=== PATIENT | male | born 1965 | race Caucasian/White ===

== ENCOUNTER 2016-09-12 17:44 | Emergency (ER) | payer SELFPAY ==
[~2016-09-12] VITALS: Ht 188 cm; Wt 73.8 kg
[~2016-09-12 17:44] MED LIST: ACET-1256 PO; IBUP-103 PO
[2016-09-12 17:48] VITALS: TEMP 36.6; Ht 188 cm; Wt 73.8 kg
[2016-09-12] MEDS ORDERED: HYDROCODONE/ACETAMOPHEN 5/325MG TAB PO STA (18:08)
--- NOTE | 2016-09-12 18:38 | DIAGNOSTIC IMAGING REPORT ---
RIGHT KNEE 2 VIEWS CLINICAL HISTORY: Right knee pain. No reported history of trauma. FINDINGS: AP and crosstable lateral views of the right knee are obtained. No prior studies are available for comparison at the time of dictation. The skeletal structures are well mineralized. No fracture is seen. The joint spaces of the knee are well-maintained. There is no joint effusion. The overlying soft tissues are within normal limits. IMPRESSION: Unremarkable radiographic assessment of the right knee. Electronically signed by: Andres Altman M.D. 09/12/2016 6:37 PM Dictated Date/Time: 09/12/2016 6:37 PM
--- NOTE | 2016-09-12 18:40 | DIAGNOSTIC IMAGING REPORT ---
RIGHT ANKLE 3 VIEWS CLINICAL HISTORY: Right ankle pain. No reported history of trauma. FINDINGS: 3 views of the right ankle are obtained. No prior studies are available for comparison at the time of dictation. The skeletal structures are well mineralized. No fracture is seen. The ankle mortise is intact. No joint effusion is identified. The overlying soft tissues are within normal limits. IMPRESSION: Unremarkable radiographic assessment of the right ankle. Electronically signed by: Andres Altman M.D. 09/12/2016 6:39 PM Dictated Date/Time: 09/12/2016 6:38 PM
--- NOTE | 2016-09-12 20:40 | DIAGNOSTIC IMAGING REPORT ---
ULTRASOUND RIGHT LOWER EXTREMITY VENOUS CLINICAL HISTORY: Right leg pain. COMPARISON STUDY: No priors. TECHNIQUE: Real-time, grayscale, and color Doppler sonography of the deep veins of the right lower extremity was performed from the inguinal crease to the calf. Compression and augmentation were utilized. FINDINGS: There is no sonographic evidence of deep venous thrombosis identified in the right lower extremity. The common femoral, superficial femoral, and popliteal veins are patent and normally compressible. The greater saphenous vein and the profunda femoris vein at the junction with the common femoral vein are clear. The visualized calf veins are patent. IMPRESSION: There is no sonographic evidence of deep venous thrombosis identified in the right lower extremity. Electronically signed by: Andres Altman M.D. 09/12/2016 8:38 PM Dictated Date/Time: 09/12/2016 8:38 PM
--- NOTE | 2016-09-12 21:16 | EMERGENCY ROOM VISIT NOTE ---
ED Visit Note First contact with patient: 17:52 CHIEF COMPLAINT: Right knee and ankle pain HISTORY OF PRESENT ILLNESS: This 50-year-old male presents the ER with chief complaint of right knee pain for the past 2 months which increased over the past several days and now he also has pain in the right ankle for the last few days. The patient denies any known injury. The patient states that he was incarcerated and was just released on . He states since he was released he has had increased pain in the knee and the ankle. The patient denies any fever or any numbness and tingling. The patient denies any history of gout. The patient has been taking ibuprofen without any relief of the pain. REVIEW OF SYSTEMS: 6 system review was performed and was negative unless stated otherwise in history of present illness. PMH: The patient is healthy; head and rectal surgery SOCIAL HISTORY: Patient lives alone. The patient admits to tobacco use but denies any alcohol use. PHYSICAL EXAM: Vital Signs: Were reviewed Reviewed Nurse's notes. GEN.: 50-year -old white male appears older than stated age. Poor hygiene is noted. MENTAL STATUS: Alert, oriented, and cooperative. RIGHT KNEE: No gross bony deformity noted. No erythema or edema noted. The patient is tender to palpation over the medial joint space. Full range of motion of the knee. No ligament instability noted. RIGHT ANKLE: No gross bony deformity noted. There is some mild erythema over the medial malleolus with surrounding ecchymosis. No increased temperature to touch. This area is very tender to palpation. Full range of motion of the ankle but this is painful. RIGHT LOWER LEG: Calf is nontender. No erythema or edema noted. No palpable cords noted EMERGENCY DEPARTMENT COURSE: The patient was evaluated. The patient was given Rac[place] 5/325 mg 2 tablets by mouth for pain. X-ray of the right knee and ankle were ordered and interpreted by the radiologist and myself. DIAGNOSTICS:RIGHT KNEE 2 VIEWS CLINICAL HISTORY: Right knee pain. No reported history of trauma. FINDINGS: AP and crosstable lateral views of the right knee are obtained. No prior studies are available for comparison at the time of dictation. The skeletal structures are well mineralized. No fracture is seen. The joint spaces of the knee are well-maintained. There is no joint effusion. The overlying soft tissues are within normal limits. IMPRESSION: Unremarkable radiographic assessment of the right knee. Electronically signed by: Andres Altman M.D. RIGHT ANKLE 3 VIEWS CLINICAL HISTORY: Right ankle pain. No reported history of trauma. FINDINGS: 3 views of the right ankle are obtained. No prior studies are available for comparison at the time of dictation. The skeletal structures are well mineralized. No fracture is seen. The ankle mortise is intact. No joint effusion is identified. The overlying soft tissues are within normal limits. IMPRESSION: Unremarkable radiographic assessment of the right ankle. Electronically signed by: Andres Altman M.D. 09/12/2016 6:39 PM Dictated Date/Time: 09/12/2016 6:38 PM ULTRASOUND RIGHT LOWER EXTREMITY VENOUS CLINICAL HISTORY: Right leg pain. COMPARISON STUDY: No priors. TECHNIQUE: Real-time, grayscale, and color Doppler sonography of the deep veins of the right lower extremity was performed from the inguinal crease to the calf. Compression and augmentation were utilized. FINDINGS: There is no sonographic evidence of deep venous thrombosis identified in the right lower extremity. The common femoral, superficial femoral, and popliteal veins are patent and normally compressible. The greater saphenous vein and the profunda femoris vein at the junction with the common femoral vein are clear. The visualized calf veins are patent. IMPRESSION: There is no sonographic evidence of deep venous thrombosis identified in the right lower extremity. Electronically signed by: Andres Altman M.D. 09/12/2016 8:38 PM The patient was informed of all findings. The patient was given information on CV IM for follow-up. The patient was discharged home in stable condition. DIAGNOSIS: Right knee and right ankle pain DISCHARGE INSTRUCTIONS: Ibuprofen 600 mg every 6 hours with food for pain. Take [place] as needed for more severe pain. Do not drive while taking the [place]. Recommend follow-up with either CV IM or orthopedics for continued pain. Problem List Medical Problems: (1) hemrrhoid surgery Status: Resolved Surgical Problems: (1) History of surgery of head Status: Resolved Current/Historical Medications Scheduled PRN Ibuprofen Tab (Advil), 400-600 MG PO Q6H PRN for Headache Allergies Coded Allergies: Propoxyphene (Unverified Allergy, Mild, 09/15/12) Penicillins (Verified Allergy, Unknown, 01/16/15) Vital Signs Date Time Temp Pulse Resp B/P Pulse Ox O2 Delivery O2 Flow Rate FiO2 09/12/16 20:18 85 20 120/92 96 Room Air 09/12/16 18:39 86 16 144/98 97 Room Air 09/12/16 17:48 36.6 85 20 148/102 100 Room Air Medications Administered Medications (Trade) Dose Ordered Sig/Brooke Route Start Time Stop Time Status Last Admin Dose Admin Acetaminophen/ Hydrocodone Bitart (Racine 5/325 Tab) 2 tab NOW STAT PO 09/12/16 18:08 09/12/16 18:11 DC 09/12/16 18:35 2 TAB Departure Information Referrals No Doctor, Assigned (PCP) Patient Instructions [facility]
[2016-09-12] MEDS ORDERED: HYDR-5688 PO (21:19)
[2016-09-12 21:28] VITALS: BP 113/88; PULSE 93; O2SAT 97
== END 2016-09-12 21:30 | disposition home or self-care (01) ==
LOC: C.EDB 17:45 → C.EDD 21:30
DX: M25.561 Pain in right knee (principal); M25.571 Pain in right ankle and joints of right foot; F17.200 Nicotine dependence, unspecified, uncomplicated

== ENCOUNTER 2016-11-08 18:33 | Emergency (ER) | payer SELFPAY ==
[~2016-11-08] VITALS: Ht 188 cm; Wt 73.7 kg
[~2016-11-08 18:33] MED LIST changes: -ACET-1256 PO; +HYDR-5688 PO
[2016-11-08 18:35] VITALS: BP 117/75; PULSE 114; TEMP 36.7; O2SAT 96; Ht 188 cm; Wt 73.7 kg
--- NOTE | 2016-11-08 21:06 | EMERGENCY ROOM VISIT NOTE ---
History First contact with patient: 19:03 Chief Complaint: FACIAL PAIN/INJURY Stated Complaint: LUMP ON FACE History of Present Illness The patient is a 50 year old male who presents to the Emergency Room with complaints of a lump on his left cheek. The patient reports that the lump has been there for several months. He does report a prior history of similar lesions that have been removed by dermatology. He also had a salivary gland lesion that was removed in the past as well. He reports that the lump is not painful. He denies any painful sensation on the inside of the cheek. He denies any recent injury to the cheek. Review of Systems 6 system review was performed and was negative except for pertinent positives and negatives as indicated in history of present illness Past Medical/Surgical History Medical Problems: (1) hemrrhoid surgery Surgical Problems: (1) History of surgery of head Family History FHx: diabetes FHx: hypertension Social History Smoking Status: Current Every Day Smoker Alcohol Use: none Drug Use: none Marital Status: Housing Status: lives with family Occupation Status: unemployed Current/Historical Medications No Active Prescriptions or Reported Meds Allergies Coded Allergies: Propoxyphene (Verified Allergy, Mild, 11/08/16) Penicillins (Verified Allergy, Unknown, 11/08/16) Physical Exam Vital Signs Date Time Temp Pulse Resp B/P Pulse Ox O2 Delivery O2 Flow Rate FiO2 11/08/16 18:35 36.7 114 20 117/75 96 Room Air Pain Rating (0-10): 0 Physical Exam CONSTITUTIONAL: Healthy and well nourished. Alert and oriented X 3 with positive affect. She does not appear in any acute distress. HEENT: Examination shows a grape-sized soft tissue mass on the left cheek. There is no skin changes of the inner buccal mucosa. No obvious gingival erythema or dental abnormalities in that region. There is no overriding erythema of the soft tissue mass, and no focal fluctuance. It is nontender to palpation. LYMPHATICS: No preauricular, submental, submandibular or cervical chain adenopathy. NECK: Full active range of motion without discomfort. INTEGUMENTARY: No rash or other significant dermatologic conditions noted. NEUROLOGIC: No focal neurologic deficits noted. Medical Decision & Procedures ED Course Patient history and physical exam were performed. Nurse's notes were reviewed. Because the patient does not appear to have any significant problems with this lesion, and with physical exam not showing any evidence for infection, I did suggest that he follow-up with a biology internship for further management. He was provided contact information for the [facility] dermatology office. The patient reports that he will be moving from the area in 2 weeks. If he is unable to schedule an appointment in that period of time, he was instructed to find a biology internship wherever he may move. The patient voiced understanding, and denied any additional needs at the time of discharge. Impression Primary Impression: Left facial mass Departure Information Dispostion Home / Self-Care Condition GOOD Prescriptions No Active Prescriptions or Reported Meds Forms HOME CARE DOCUMENTATION FORM, IMPORTANT VISIT INFORMATION Patient Instructions [id number] Additional Instructions Suggest follow-up with the [facility] dermatology office ) to discuss further treatment and removal.
== END 2016-11-08 19:18 | disposition home or self-care (01) ==
LOC: C.EDB 18:34 → C.EDD 19:18
DX: R22.9 Localized swelling, mass and lump, unspecified (principal); Z83.3 Family history of diabetes mellitus; Z82.49 Family history of ischemic heart disease and other diseases of the circulatory system; F17.210 Nicotine dependence, cigarettes, uncomplicated